=== PATIENT | female | born 1995 | race Caucasian/White ===

== ENCOUNTER 2022-09-26 21:00 | Emergency (ER) | payer OTHER ==
[~2022-09-26] VITALS: Ht 152.4 cm; Wt 46.0 kg
[2022-09-26 21:20] VITALS: BP 105/75
== END 2022-09-27 01:26 | disposition home or self-care (01) ==
LOC: ER 21:00
DX: R58 Hemorrhage, not elsewhere classified (principal)
CPT/HCPCS: 73130; 81025; 99283